=== PATIENT | male | born 1975 | race Caucasian/White ===

== ENCOUNTER 2023-06-05 11:20 | Emergency (ER) | payer BC, OTHER ==
[2023-06-05 11:30] VITALS: BP 116/72; PULSE 60; RESP 18; TEMP 98.9; BMI 25.8
[2023-06-05] MEDS ORDERED: KETOROLAC TROMETHAMINE 30 MG/1 ML VIAL IM ONE (12:25)
[2023-06-05] MEDS ORDERED: KETOROLAC TROMETHAMINE 30 MG/1 ML VIAL ONE (12:31)
== END 2023-06-05 13:30 | disposition home or self-care (01) ==
LOC: JER 11:20
PROC: 3E0233Z Introduction of Anti-inflammatory into Muscle, Percutaneous Approach (ICD-10-PCS; principal; 2023-06-05)
DX: R20.0 Anesthesia of skin (principal); G43.009 Migraine without aura, not intractable, without status migrainosus
CPT/HCPCS: 99284-25